=== PATIENT | male | born 1995 | race Caucasian/White ===

== ENCOUNTER 2023-04-02 09:56 | Outpatient (CLI) | payer BC | END 2023-04-02 09:57 | disposition home or self-care (01) | LOC: BICULT 09:56 | PROVIDERS: ATTEND Family Medicine | DX: S29.9XXA Unspecified injury of thorax, initial encounter (principal); K52.9 Noninfective gastroenteritis and colitis, unspecified; M41.9 Scoliosis, unspecified | CPT/HCPCS: 76700 ==